=== PATIENT | female | born 1960 | race Caucasian/White ===

== ENCOUNTER 2021-02-02 19:32 | Emergency (ER) | payer BC, OTHER ==
[2021-02-02 21:07] VITALS: RESP 16
--- NOTE | 2021-02-02 22:11 | ED ---
Recheck HPI - General Chief Complaint: Shortness of Breath Stated Complaint: SOB, COVID + Time Seen by Provider: 02/02/21 21:52 Source: patient, RN notes reviewed, old records reviewed Mode of arrival: ambulatory Limitations: no limitations - History of Present Illness Initial Comments: This is a 6-year-old female to the ER for evaluation patient presents today for evaluation regards to known diagnosis of coronavirus. Patient states she had coronavirus 1 year ago. Much worse especially shortness of breath. Patient denying any chest pain. Patient does have a significant surgical history but no significant medical history. Patient does have a positive diagnosis coronavirus this morning. She has a pulse oximetry at home which was showing oxygen 88%. MD Complaint: abnormal lab (Positive for coronavirus) -: days(s) Returns Today for: Called Because of Abnormal Lab/Test, persistent/worsening pain related to initial visit, other (Mild shortness of breath) Symptoms Since Prior Visit: no new symptoms, fever Context: ran out of medication, other (Shortness of breath) Associated Symptoms: fever, chills Treatments Prior to Arrival: other (none) - Related Data Allergies Allergy/AdvReac Type Severity Reaction Status Date / Time codeine Allergy Rash/Hives Verified 02/02/21 21:09 diphenhydramine Allergy Rash/Hives Verified 02/02/21 21:09 [From Benadryl] Review of Systems ROS Statement: Those systems with pertinent positive or pertinent negative responses have been documented in the HPI. ROS Other: All systems not noted in ROS Statement are negative. Past Medical History Past Medical History: No Reported History History of Any Multi-Drug Resistant Organisms: None Reported Past Surgical History: Adenoidectomy, Appendectomy, Breast Surgery, Section, Cholecystectomy, Tonsillectomy Past Psychological History: Anxiety Smoking Status: Never smoker Past Alcohol Use History: None Reported Past Drug Use History: None Reported General Exam Limitations: no limitations General appearance: alert, in no apparent distress, anxious Head exam: Present: atraumatic, normocephalic, normal inspection Eye exam: Present: normal appearance, PERRL, EOMI. Absent: scleral icterus, conjunctival injection, periorbital swelling ENT exam: Present: normal exam, mucous membranes moist Neck exam: Present: normal inspection. Absent: tenderness, meningismus, lymphadenopathy Respiratory exam: Present: normal lung sounds bilaterally. Absent: respiratory distress, wheezes, rales, rhonchi, stridor Cardiovascular Exam: Present: regular rate, normal rhythm, normal heart sounds. Absent: systolic murmur, diastolic murmur, rubs, gallop, clicks GI/Abdominal exam: Present: soft, normal bowel sounds. Absent: distended, tenderness, guarding, rebound, rigid Extremities exam: Present: normal inspection, full ROM, normal capillary refill. Absent: tenderness, pedal edema, joint swelling, calf tenderness Back exam: Present: normal inspection Neurological exam: Present: alert, oriented X3, CN II-XII intact Psychiatric exam: Present: normal affect, normal mood Skin exam: Present: warm, dry, intact, normal color. Absent: rash Course Vital Signs 02/02/21 02/02/21 02/02/21 21:04 23:20 23:39 Temperature 99.9 F H 97.8 F Pulse Rate 84 64 60 Respiratory 16 16 Rate Blood Pressure 110/81 131/89 120/80 O2 Sat by Pulse 95 96 95 Oximetry 02/03/21 01:00 Temperature 98.5 F Pulse Rate 59 L Respiratory 16 Rate Blood Pressure 115/75 O2 Sat by Pulse 97 Oximetry - Reevaluation(s) Reevaluation #1: 02/03/21 01:36 Medical record is reviewed Reevaluation #2: 02/03/21 01:36 Patient is aware positive coronavirus diagnosis will BAM treatment Medical Decision Making - Medical Decision Making 60 female to the ER for evaluation. At this point patient can be discharged home she was given BAM treatment for coronavirus. Patient has no complaints and can be discharged Disposition Clinical Impression: Coronavirus infection, COVID-19 Disposition: HOME SELF-CARE Condition: Good Instructions (If sedation given, give patient instructions): Coronavirus Disease 2019 (COVID-19) Is patient prescribed a controlled substance at d/c from ED?: No Referrals: Frieda Stewart MD [Primary Care Provider] - 1-2 days
--- NOTE | 2021-02-02 22:39 | XR ---
EXAMINATION TYPE: XR chest 1V portable DATE OF EXAM: 02/02/2021 COMPARISON: NONE HISTORY: Cough and fever. TECHNIQUE: Single frontal view of the chest is obtained. FINDINGS: There is mild perihilar and bibasilar streaky opacities. No pleural effusion, or pneumotho rax seen. The cardiac silhouette size is within normal limits. The osseous structures are intact. IMPRESSION: Mild opacities, concerning for infiltrates.
[2021-02-02] MEDS ORDERED: SODIUM CHLORIDE 0.9% 50 ML IVPB ONE (22:45)
[2021-02-02] MEDS ORDERED: BAMLANIVIMAB (EUA) 700 MG, ETESEVIMAB (EUA) 1,400 MG in SODIUM CHLORIDE 0.9% 50 ML IVPB ONE (22:45)
[2021-02-03 01:28] VITALS: BP 115/75; PULSE 59; TEMP 98.5
== END 2021-02-03 01:36 | disposition home or self-care (01) ==
LOC: EC 19:32
DX: U07.1 COVID-19 (principal); Z88.5 Allergy status to narcotic agent; Z88.8 Allergy status to other drugs, medicaments and biological substances
CPT/HCPCS: 71045; 99285; 96365; Q0245